=== PATIENT | male | born 1970 | race Two or more races ===

== ENCOUNTER 2018-10-27 10:12 | Inpatient (IN) | payer OTHER ==
[2018-10-27 12:22] VITALS: BMI 21.1
--- NOTE | 2018-10-27 13:59 | HP ---
CIWA Score Nausea/Vomitin-Mild Nausea/No Vomiting Muscle Tremors: 2 Anxiety: 2 Agitation: 1-Slight > Activity Paroxysmal Sweats: 1-Minimal Palms Moist Orientation: 1-Uncertain about Date Tacttile Disturbances: 1-Very Mild Itch/Numbness Auditory Disturbances: 1-Very Mild Visual Disturbances: 1-Very Mild Sensitivity Headache: 1-Very Mild CIWA-Ar Total Score: 12 - Admission Criteria [facility]ASAS Guidelines: Admission for Medically Managed Detox: Requires at least one of the followin. CIWA greater than 12 2. Seizures within the past 24 hours 3. Delirium tremens within the past 24 hours 4. Hallucinations within the past 24 hours 5. Acute intervention needed for co occurring medical disorder 6. Acute intervention needed for co occurring psychiatric disorder 7. Severe withdrawal that cannot be handled at a lower level of care (continued vomiting, continued diarrhea, abnormal vital signs) requiring intravenous medication and/or fluids 8. Admission ROS [facility] - HPI Chief Complaint: alcohol, Benzo detox, on MAT methadone 48 yo with HCV pos- not treated, bipolar d/o. On no meds. PCP- none opioids: in a methadone program 50mg, heroin-7-8 bags/day, IV 2 mg Klonopin/ 4 mg xanax- per day, bot in streets alcohol- 1/5th a day cocaine- 2-3 times a week $20 DUR- no meds Utox: jackie, Mop, mtd, bzo, MADDIE- .058 Allergies/Adverse Reactions: Allergies Allergy/AdvReac Type Severity Reaction Status Date / Time No Known Allergies Allergy Verified 10/27/18 12:09 - Ebola screening Have you traveled outside of the country in the last 21 days: No (N) Have you had contact with anyone from an Ebola affected area: No Do you have a fever: No Patient History - Patient Medical History Hx Asthma: No Hx Chronic Obstructive Pulmonary Disease (COPD): No Hx Cardiac Disorders: No Hx Hypertension: No Hx Seizures: No Hx Diabetes: No Hx Gastrointestinal Disorders: No Hx Genitourinary Disorders: No Hx Sexually Transmitted Disorders: No Hx Renal Disease (ESRD): No Hx Thyroid Disease: No Hx Human Immunodeficiency Virus (HIV): No Hx Hepatitis C: Yes Hx Depression: Yes Hx Suicide Attempt: No Hx Schizophrenia: No - Patient Surgical History Past Surgical History: Yes Hx Neurologic Surgery: No Hx Cataract Extraction: No Hx Cardiac Surgery: No Hx Lung Surgery: No Hx Breast Surgery: No Hx Breast Biopsy: No Hx Abdominal Surgery: No Hx Appendectomy: No Hx Cholecystectomy: No Hx Genitourinary Surgery: No Hx Section: No Hx Orthopedic Surgery: No Other Surgical History: bilateral inguinal hernia repair in 1993/appendectomy in 1988 Anesthesia Reaction: No - PPD History Date: 07/13/11 PPD to be Administered?: Yes - Smoking Cessation Smoking history: Current every day smoker Have you smoked in the past 12 months: Yes Aproximately how many cigarettes per day: 20 Cigars Per Day: 0 Hx Chewing Tobacco Use: No Initiated information on smoking cessation: Yes 'Breaking Loose' booklet given: 10/27/18 - Substance & Tx. History Substance Use Type: Alcohol, Cocaine, Heroin, Prescribed - Substances abused Cocaine Substance route: Injection Frequency: Daily Amount used: 20 dollars Age of first use: 21 Date of last use: 10/26/18 Heroin Substance route: Injection Frequency: Daily Amount used: about 13 to 14 bags Age of first use: 24 Date of last use: 10/26/18 Alcohol Substance route: Oral Frequency: Daily Amount used: 2 pints Age of first use: 11 Date of last use: 10/27/18 Alprazolam (Xanax) Substance route: Oral Frequency: Daily Amount used: 3 pills of 2 mg Age of first use: 47 Date of last use: 10/26/18 Benzodiazepine (Klonopin) Substance route: Oral Frequency: Daily Amount used: 4 of 2 mg Age of first use: 47 Date of last use: 10/26/18 Family Disease History - Family Disease History Family Disease History: Heart Disease: Mother Admission Physical Exam [facility] - Vital Signs Vital Signs: Vital Signs - 24 hr 10/27/18 12:08 Temperature 97.1 F L Pulse Rate 65 Respiratory 16 Rate Blood Pressure 102/62 - Physical General Appearance: Yes: Within Normal Limits, Disheveled HEENTM: Yes: Within Normal Limits, EOMI, Hearing grossly Normal, Normal Voice, ALINE, Pharynx Normal Respiratory: Yes: Within Normal Limits, Chest Non-Tender, Lungs Clear Neck: Yes: Within Normal Limits Cardiology: Yes: Within Normal Limits, Regular Rhythm, Regular Rate, S1, S2 Abdominal: Yes: Within Normal Limits, Normal Bowel Sounds, Non Tender, Flat Genitourinary: Yes: Within Normal Limits Back: Yes: Within Normal Limits Musculoskeletal: Yes: Within Normal Limits Extremities: Yes: Within Normal Limits Neurological: Yes: Within Normal Limits, Fully Oriented, Alert, Motor Strength 5 /5, Normal Mood/Affect Integumentary: Yes: Within Normal Limits, Track [place] Lymphatic: Yes: Within Normal Limits - Diagnostic (1) Alcohol use disorder Current Visit: Yes Status: Acute (2) Moderate benzodiazepine use disorder Current Visit: Yes Status: Acute (3) Cocaine use disorder Current Visit: Yes Status: Acute (4) Methadone maintenance therapy patient Current Visit: Yes Status: Acute (5) Opioid use disorder Current Visit: Yes Status: Acute (6) HCV antibody positive Current Visit: Yes Status: Acute Breathalyzer - Breathalyzer Breathalyzer: 0.058 Urine Drug Screen - Test Device Lot number: [id number] Expiration date: 07/15/20 - Control Is test valid?: Yes - Results Drug screen NEGATIVE: No Urine drug screen results: JACKIE-Cocaine, MOP-Opiates, MTD-Methadone, BZO- Benzodiazepines Inpatient Rehab Admission - Rehab Decision to Admit Inpatient rehab admission?: No
[2018-10-27] MEDS ORDERED: METHOCARBAMOL 500 MG TABLET PO PRN (14:06)
[2018-10-27] MEDS ORDERED: BISMUTH SUBSALICYLATE 262 MG/15 ML BTL PO PRN (14:06)
[2018-10-27] MEDS ORDERED: NICOTINE POLACRILEX 2 MG GUM BUC PRN (14:06)
[2018-10-27] MEDS ORDERED: MAG HYDROX/AL HYDROX/SIMETH 30 ML UNIT-DOSE CUP PO PRN (14:06)
[2018-10-27] MEDS ORDERED: MAGNESIUM HYDROX 2400MG/30ML ORAL SUSPENSION 30 ML CUP PO PRN (14:06)
[2018-10-27] MEDS ORDERED: ONDANSETRON *ODT* 4 MG TABLET SL PRN (14:06)
[2018-10-27] MEDS ORDERED: MAGNESIUM CITRATE 300 ML BOTTLE PO PRN (14:06)
[2018-10-27] MEDS ORDERED: hydrOXYzine PAMOATE 25 MG CAPSULE (FP) PO PRN (14:06)
[2018-10-27] MEDS ORDERED: IBUPROFEN 400 MG TABLET (FP) PO PRN (14:06)
[2018-10-27] MEDS ORDERED: ACETAMINOPHEN 325 MG TABLET (FP) PO PRN ×2 (14:06)
[2018-10-27] MEDS ORDERED: MELATONIN 5 MG TABLETS PO PRN (14:06)
[2018-10-27] MEDS ORDERED: MENTHOL/PHENOL 1 EACH UD MM PRN (14:06)
[2018-10-27] MEDS ORDERED: diazePAM 5 MG TABLET PO ONE (15:20)
[2018-10-27 18:06] LABS: HEMOGLOBIN 12.2 GM/dL (11.7-16.9); MCH 30.4 pg (25.7-33.7); MEAN CELL VOLUME 92.3 fl (80-96); MEAN PLT VOLUME 9.2 fl (7.5-11.1); PLATELET COUNT 195 K/MM3 (134-434); RBC 4.01 M/mm3 (4.00-5.60); RDW 13.8 % (11.9-15.9); WHITE BLOOD COUNT 5.1 K/mm3 (4.0-10.0)
[2018-10-27 18:35] LABS: ALBUMIN 3.6 g/dl (3.4-5.0); BILIRUBIN,TOTAL 0.4 mg/dL (0.2-1); CREATININE 1.2 mg/dL (0.55-1.3); POTASSIUM 3.9 mmol/L (3.5-5.1); TOT PROT 6.7 g/dl (6.4-8.2)
[2018-10-27 19:57] LABS: PH,URINE 5.5 (5.0-8.0); URINE APPEARANCE CLEAR; URINE BILIRUBIN NEGATIVE (NEGATIVE); URINE COLOR DK YELLOW; URINE GLUCOSE (UA) NEGATIVE (NEGATIVE); URINE KETONE TRACE (NEGATIVE); URINE LEUK ESTERASE NEGATIVE (NEGATIVE); URINE NITRITE NEGATIVE (NEGATIVE); URINE PROTEIN NEGATIVE (NEGATIVE)
[2018-10-27] MEDS: diazePAM 5 MG TABLET PO PRN (20:34)
[2018-10-27] MEDS: THIAMINE HCL 100 MG TABLET (FP) PO SCH (22:59)
[2018-10-27] MEDS: diazePAM 5 MG TABLET PO SCH (22:59)
[2018-10-28] MEDS: diazePAM 5 MG TABLET PO SCH ×3 (07:11→22:27)
[2018-10-28] MEDS ORDERED: METHADONE HCL 10 MG TABLET PO SCH (09:15)
[2018-10-28] MEDS ORDERED: METHADONE HCL 10 MG TABLET ONE (09:37)
[2018-10-28] MEDS ORDERED: METHADONE HCL 40 MG DISPERSABLE TABLET ONE (09:38)
[2018-10-28] MEDS ORDERED: PRENATAL VITAMINS W/ FOLIC ACID TABLET (FP) PO SCH (10:00)
[2018-10-28] MEDS ORDERED: NICOTINE 21 MG/24 HOURS TOPICAL PATCH TD SCH (10:00)
[2018-10-28] MEDS: METHADONE 40 MG, METHADONE 10 MG PO SCH (10:11)
[2018-10-28] MEDS: diazePAM 5 MG TABLET PO PRN ×3 (10:12→21:13)
--- NOTE | 2018-10-28 14:45 | PN ---
S CIWA - CIWA Score Nausea/Vomitin Muscle Tremors: 3 Anxiety: 2 Agitation: 2 Paroxysmal Sweats: 1-Minimal Palms Moist Orientation: 0-Oriented Tacttile Disturbances: 1-Very Mild Itch/Numbness Auditory Disturbances: 1-Very Mild Visual Disturbances: 0-None Headache: 2-Mild CIWA-Ar Total Score: 14 S Progress Note (SOAP) Subjective: alert,irritable,anxious,interrupted sleep,tremor Objective: 10/28/18 14:43 Vital Signs Temperature 97.6 F 10/28/18 10:35 Pulse Rate 68 10/28/18 10:35 Respiratory Rate 18 10/28/18 10:35 Blood Pressure 110/57 L 10/28/18 10:35 O2 Sat by Pulse Oximetry (%) Laboratory 10/27/18 10/27/18 10/27/18 14:25 14:25 14:25 WBC 5.1 K/mm3 K/mm3 (4.0-10.0) RBC 4.01 M/mm3 M/mm3 (4.00-5.60) Hgb 12.2 GM/dL GM/dL (11.7-16.9) Hct 37.0 % % (35.4-49) MCV 92.3 fl fl (80-96) MCH 30.4 pg pg (25.7-33.7) MCHC 33.0 g/dl g/dl (32.0-35.9) RDW 13.8 % % (11.9-15.9) Plt Count 195 K/MM3 K/MM3 (134-434) MPV 9.2 fl fl (7.5-11.1) Sodium 138 mmol/L mmol/L (136-145) Potassium 3.9 mmol/L mmol/L (3.5-5.1) Chloride 104 mmol/L mmol/L (98-107) Carbon Dioxide 25 mmol/L mmol/L (21-32) Anion Gap 9 MMOL/L MMOL/L (8-16) BUN 11 mg/dL mg/dL (7-18) Creatinine 1.2 mg/dL mg/dL (0.55-1.3) Est GFR (CKD-EPI)AfAm 83.54 Est GFR (CKD-EPI)NonAf 72.08 Random Glucose 97 mg/dL mg/dL (74-106) Calcium 9.0 mg/dL mg/dL (8.5-10.1) Total Bilirubin 0.4 mg/dL mg/dL (0.2-1) AST 20 U/L U/L (15-37) ALT 29 U/L U/L (13-61) Alkaline Phosphatase 85 U/L U/L (45-117) Total Protein 6.7 g/dl g/dl (6.4-8.2) Albumin 3.6 g/dl g/dl (3.4-5.0) Urine Color Urine Appearance Urine pH Ur Specific [place] Urine Protein Urine Glucose (UA) Urine Ketones Urine Blood Urine Nitrite Urine Bilirubin Urine Urobilinogen Ur Leukocyte Esterase RPR Titer Nonreactive (NONREACTIVE) 10/27/18 15:00 WBC RBC Hgb Hct MCV MCH MCHC RDW Plt Count MPV Sodium Potassium Chloride Carbon Dioxide Anion Gap BUN Creatinine Est GFR (CKD-EPI)AfAm Est GFR (CKD-EPI)NonAf Random Glucose Calcium Total Bilirubin AST ALT Alkaline Phosphatase Total Protein Albumin Urine Color Dk yellow Urine Appearance Clear Urine pH 5.5 (5.0-8.0) Ur Specific [place] 1.026 (1.010-1.035) Urine Protein Negative (NEGATIVE) Urine Glucose (UA) Negative (NEGATIVE) Urine Ketones Trace H (NEGATIVE) Urine Blood Negative (NEGATIVE) Urine Nitrite Negative (NEGATIVE) Urine Bilirubin Negative (NEGATIVE) Urine Urobilinogen 1.0 mg/dL mg/dL (0.2-1.0) Ur Leukocyte Esterase Negative (NEGATIVE) RPR Titer Assessment: 10/28/18 14:44 withdrawal symptom Plan: continue detox,
[2018-10-28] MEDS: THIAMINE HCL 100 MG TABLET (FP) PO SCH (21:13)
[2018-10-29] MEDS ORDERED: METHADONE HCL 40 MG DISPERSABLE TABLET ONE (05:23)
[2018-10-29] MEDS ORDERED: METHADONE HCL 10 MG TABLET ONE (05:23)
[2018-10-29] MEDS: METHADONE 40 MG, METHADONE 10 MG PO SCH (05:24)
[2018-10-29] MEDS: diazePAM 5 MG TABLET PO PRN (05:25)
[2018-10-29 06:53] VITALS: BP 129/72; PULSE 52; TEMP 97.7
--- NOTE | 2018-10-29 07:02 | DS ---
[facility] Detox Discharge Summary Admission Date: 10/27/18 Discharge Date: 10/29/18 - History Additional Comments: Patient states that he has his job's [employer] and they need it at work immediately. 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 [employer] this morning Pertinent Past History: Hep C, depression, alcohol dependence, cocaine dependence, heroin dependence and benzodiazepine dependence - Physical Exam Results Vital Signs: Vital Signs Temperature 97.7 F 10/29/18 06:53 Pulse Rate 52 L 10/29/18 06:53 Respiratory Rate 18 10/29/18 06:53 Blood Pressure 129/72 10/29/18 06:53 O2 Sat by Pulse Oximetry (%) Laboratory Last Values WBC 5.1 K/mm3 (4.0-10.0) 10/27/18 14:25 RBC 4.01 M/mm3 (4.00-5.60) 10/27/18 14:25 Hgb 12.2 GM/dL (11.7-16.9) 10/27/18 14:25 Hct 37.0 % (35.4-49) 10/27/18 14:25 MCV 92.3 fl (80-96) 10/27/18 14:25 MCH 30.4 pg (25.7-33.7) 10/27/18 14:25 MCHC 33.0 g/dl (32.0-35.9) 10/27/18 14:25 RDW 13.8 % (11.9-15.9) 10/27/18 14:25 Plt Count 195 K/MM3 (134-434) 10/27/18 14:25 MPV 9.2 fl (7.5-11.1) 10/27/18 14:25 Sodium 138 mmol/L (136-145) 10/27/18 14:25 Potassium 3.9 mmol/L (3.5-5.1) 10/27/18 14:25 Chloride 104 mmol/L (98-107) 10/27/18 14:25 Carbon Dioxide 25 mmol/L (21-32) 10/27/18 14:25 Anion Gap 9 MMOL/L (8-16) 10/27/18 14:25 BUN 11 mg/dL (7-18) 10/27/18 14:25 Creatinine 1.2 mg/dL (0.55-1.3) 10/27/18 14:25 Est GFR (CKD-EPI)AfAm 83.54 10/27/18 14:25 Est GFR (CKD-EPI)NonAf 72.08 10/27/18 14:25 Random Glucose 97 mg/dL (74-106) 10/27/18 14:25 Calcium 9.0 mg/dL (8.5-10.1) 10/27/18 14:25 Total Bilirubin 0.4 mg/dL (0.2-1) 10/27/18 14:25 AST 20 U/L (15-37) 10/27/18 14:25 ALT 29 U/L (13-61) 10/27/18 14:25 Alkaline Phosphatase 85 U/L (45-117) 10/27/18 14:25 Total Protein 6.7 g/dl (6.4-8.2) 10/27/18 14:25 Albumin 3.6 g/dl (3.4-5.0) 10/27/18 14:25 Urine Color Dk yellow 10/27/18 15:00 Urine Appearance Clear 10/27/18 15:00 Urine pH 5.5 (5.0-8.0) 10/27/18 15:00 Ur Specific [place] 1.026 (1.010-1.035) 10/27/18 15:00 Urine Protein Negative (NEGATIVE) 10/27/18 15:00 Urine Glucose (UA) Negative (NEGATIVE) 10/27/18 15:00 Urine Ketones Trace (NEGATIVE) H 10/27/18 15:00 Urine Blood Negative (NEGATIVE) 10/27/18 15:00 Urine Nitrite Negative (NEGATIVE) 10/27/18 15:00 Urine Bilirubin Negative (NEGATIVE) 10/27/18 15:00 Urine Urobilinogen 1.0 mg/dL (0.2-1.0) 10/27/18 15:00 Ur Leukocyte Esterase Negative (NEGATIVE) 10/27/18 15:00 RPR Titer Nonreactive (NONREACTIVE) 10/27/18 14:25 Pertinent Admission Physical Exam Findings: Withdrawal symptoms - Medication Discharge Medications: Ambulatory Orders NK [No Known Home Medication] 10/27/18 - Diagnosis (1) Alcohol use disorder Current Visit: Yes Status: Acute (2) Cocaine use disorder Current Visit: Yes Status: Acute (3) HCV antibody positive Current Visit: Yes Status: Acute (4) Methadone maintenance therapy patient Current Visit: Yes Status: Acute (5) Moderate benzodiazepine use disorder Current Visit: Yes Status: Acute (6) Opioid use disorder Current Visit: Yes Status: Acute - AMA Did Patient Leave Against Medical Advice: Yes
[2018-10-29] MEDS ORDERED: diazePAM 5 MG TABLET PO SCH (10:00)
[2018-10-30] MEDS ORDERED: diazePAM 5 MG TABLET PO SCH (06:00)
== END 2018-10-29 07:20 | disposition left against medical advice (07) | DRG 770 ==
LOC: YASAS 10:12 → Y6N 15:02
PROVIDERS: ADMIT Surgery; ATTEND Surgery
PROC: HZ2ZZZZ Detoxification Services for Substance Abuse Treatment (ICD-10-PCS; principal; 2018-10-27)
DX: F11.23 Opioid dependence with withdrawal (principal); F10.230 Alcohol dependence with withdrawal, uncomplicated; F14.20 Cocaine dependence, uncomplicated; F13.230 Sedative, hypnotic or anxiolytic dependence with withdrawal, uncomplicated; F17.210 Nicotine dependence, cigarettes, uncomplicated; B18.2 Chronic viral hepatitis C; Z59.0 Homelessness
CPT/HCPCS: 36415; 80053; 81003; 85027; 86593